=== PATIENT | female | born 1985 | race Caucasian/White ===

== ENCOUNTER 2016-11-29 15:55 | Emergency (ER) | payer MEDICAID, OTHER ==
[~2016-11-29] VITALS: Ht 154.9 cm; Wt 78.9 kg
[2016-11-29 17:03] VITALS: BP 132/72
== END 2016-11-29 17:59 | disposition home or self-care (01) ==
LOC: ER 16:04
DX: G56.02 Carpal tunnel syndrome, left upper limb (principal)
CPT/HCPCS: 29125; 93005